=== PATIENT | female | born 2000 | race African-American/Black ===

== ENCOUNTER 2025-05-30 19:20 | Emergency (ER) | payer OTHER ==
[~2025-05-30] VITALS: Ht 154.9 cm; Wt 63.5 kg
[2025-05-30 19:25] VITALS: BP 134/69; TEMP 98; O2SAT 100
[2025-05-30 20:31] LABS: HCG, SERUM QUALITATIVE POSITIVE (NEGATIVE)
== END 2025-05-30 21:00 | disposition home or self-care (01) ==
LOC: M ED 19:20
DX: Z32.01 Encounter for pregnancy test, result positive (principal)

== ENCOUNTER 2025-06-13 05:45 | Emergency (ER) | payer OTHER ==
[~2025-06-13] VITALS: Ht 154.9 cm; Wt 64.9 kg
[2025-06-13] MEDS ORDERED: MULTTAB20 PO (05:52)
[2025-06-13 06:56] LABS: BASO # 0.0 10^3/uL (0.0-0.2); BASO % 0.4 % (0.0-1.0); EOS # 0.2 10^3/uL (0.0-0.5); EOS % 2.0 % (0.0-3.0); LYMPH # 2.6 10^3/uL (1.5-5.0); LYMPH % 28.4 % (24.0-44.0); MONO # 0.8 10^3/uL (0.0-0.8); MONO % 8.9 % (2.0-8.0); NEUTROPHILS # 5.4 10^3/uL (1.5-8.5); NEUTROPHILS % 59.9 % (36.0-66.0); PLATELET COUNT, AUTOMATED 260 10^3/uL (150-450)
[2025-06-13 07:16] LABS: KETONE, URINE AUTO RFX NEGATIVE (NEGATIVE); LEUKOCYTE ESTERASE UR AUTO RFX NEGATIVE (NEGATIVE); NITRITE, URINE AUTO RFX NEGATIVE (NEGATIVE); RBC, URINE AUTO RFX 0 /HPF (0-3); SQUAM EPITHELIAL CELL UR AURFX 5 /HPF (0-6); WBC, URINE AUTO RFX 0 /HPF (0-3)
[2025-06-13 07:19] LABS: ALT/SGPT 15 U/L (7.0-40); AST/SGOT 21 U/L (<34); CALCIUM LEVEL 9.2 MG/DL (8.5-10.1); CARBON DIOXIDE LEVEL 26 MMOL/L (20-31); CHLORIDE LEVEL 103 MMOL/L (98-107); CREATININE FOR GFR 0.75 MG/DL (0.55-1.30); GLOMERULAR FILTRATION RATE > 90.0 (>60); POTASSIUM SERUM 4.7 MMOL/L (3.5-5.1); SODIUM LEVEL 138 MMOL/L (136-145)
[2025-06-13 07:52] LABS: HCG, SERUM QUANTITATIVE 28395.8 MIU/ML (<4.2)
[2025-06-13 09:20] VITALS: BP 112/69; TEMP 97.9; O2SAT 100
== END 2025-06-13 09:48 | disposition home or self-care (01) ==
LOC: M ED 05:45
DX: O20.8 Other hemorrhage in early pregnancy (principal); Z3A.01 Less than 8 weeks gestation of pregnancy

== ENCOUNTER → 2025-06-15 | Outpatient (CLI) | payer OTHER ==
[~2025-06-15] MED LIST: MULTTAB20 PO
== END ==
LOC: M LAB 09:51
DX: N93.9 Abnormal uterine and vaginal bleeding, unspecified (principal)

== ENCOUNTER → 2025-07-19 | Outpatient (CLI) | payer OTHER ==
[~2025-07-19] MED LIST changes: +APAP325T4 PO
[2025-07-19 16:55] LABS: PLATELET COUNT, AUTOMATED 238 10^3/uL (150-450)
[2025-07-19 17:50] LABS: HIV 1&2 SCREEN NEGATIVE (NEGATIVE)
[2025-07-19 17:56] LABS: Trichomonas vaginalis (AMP) NOT DETECTED (NEGATIVE)
[2025-07-19 17:57] LABS: HEPATITIS C VIRUS ABY INDEX < 0.02 INDEX (<0.8)
[2025-07-19 19:47] LABS: GC DNA AMPLIFICATION NEGATIVE (NEGATIVE)
== END ==
LOC: M PLALAB 15:01
PROVIDERS: ATTEND Obstetrics & Gynecology
DX: Z34.91 Encounter for supervision of normal pregnancy, unspecified, first trimester (principal); Z3A.00 Weeks of gestation of pregnancy not specified

== ENCOUNTER → 2025-07-19 | Outpatient (REF) | payer OTHER ==
[~2025-07-19] MED LIST changes: -APAP325T4 PO
== END ==
LOC: M PLALAB 14:36
PROVIDERS: ATTEND Obstetrics & Gynecology
DX: Z34.91 Encounter for supervision of normal pregnancy, unspecified, first trimester (principal)

== ENCOUNTER 2025-07-21 18:20 | Emergency (ER) | payer OTHER ==
[~2025-07-21] VITALS: Ht 154.9 cm; Wt 66.2 kg
[2025-07-21] MEDS: NS (Normal Saline) 0.9% 1,000 ML IV ONE (21:01)
[2025-07-21] MEDS: ONDANSETRON 4MG/2ML VIAL IV ONE (21:02)
[2025-07-21] MEDS: ACETAMINOPHEN *IV* 1,000 MG in IV 1 EA IV ONE (21:02)
[2025-07-21 21:17] LABS: KETONE, URINE AUTO RFX NEGATIVE (NEGATIVE); LEUKOCYTE ESTERASE UR AUTO RFX NEGATIVE (NEGATIVE); NITRITE, URINE AUTO RFX NEGATIVE (NEGATIVE); RBC, URINE AUTO RFX 0 /HPF (0-3); SQUAM EPITHELIAL CELL UR AURFX 1 /HPF (0-6); WBC, URINE AUTO RFX 0 /HPF (0-3)
[2025-07-21 22:09] VITALS: BP 110/76; TEMP 98.7; O2SAT 97
[2025-07-22] MEDS ORDERED: APAP325T4 PO (13:03)
== END 2025-07-21 22:23 | disposition home or self-care (01) ==
LOC: M ED 18:20
DX: J06.9 Acute upper respiratory infection, unspecified (principal); B34.1 Enterovirus infection, unspecified
CPT/HCPCS: 81001; 87486; 87581; 87633; 87798; 96365; 96375; 99284; J0134; J2405

== ENCOUNTER 2025-07-22 12:52 | Emergency (ER) | payer OTHER ==
[~2025-07-22] VITALS: Ht 154.9 cm; Wt 65.9 kg
[2025-07-22] MEDS ORDERED: APAP325T4 PO (13:03)
[2025-07-22 15:08] LABS: BASO # 0.0 10^3/uL (0.0-0.2); BASO % 0.5 % (0.0-1.0); EOS # 0.1 10^3/uL (0.0-0.5); EOS % 1.8 % (0.0-3.0); LYMPH # 1.5 10^3/uL (1.5-5.0); LYMPH % 23.4 % (24.0-44.0); MONO # 0.3 10^3/uL (0.0-0.8); MONO % 4.0 % (2.0-8.0); NEUTROPHILS # 4.3 10^3/uL (1.5-8.5); NEUTROPHILS % 69.8 % (36.0-66.0); PLATELET COUNT, AUTOMATED 213 10^3/uL (150-450)
[2025-07-22 15:30] LABS: CALCIUM LEVEL 8.9 MG/DL (8.5-10.1); CARBON DIOXIDE LEVEL 22 MMOL/L (20-31); CHLORIDE LEVEL 105 MMOL/L (98-107); CREATININE FOR GFR 0.55 MG/DL (0.55-1.30); GLOMERULAR FILTRATION RATE > 90.0 (>60); POTASSIUM SERUM 3.9 MMOL/L (3.5-5.1); SODIUM LEVEL 136 MMOL/L (136-145)
[2025-07-22 16:53] VITALS: BP 126/76; TEMP 97.6; O2SAT 100
== END 2025-07-22 16:57 | disposition home or self-care (01) ==
LOC: M ED 12:52
DX: O20.8 Other hemorrhage in early pregnancy (principal); Z3A.12 12 weeks gestation of pregnancy

== ENCOUNTER 2025-07-25 04:07 | Emergency (ER) | payer OTHER ==
[~2025-07-25] VITALS: Ht 154.9 cm; Wt 66.4 kg
[~2025-07-25 04:07] MED LIST changes: +APAP325T4 PO
[2025-07-25 05:17] LABS: PLATELET COUNT, AUTOMATED 224 10^3/uL (150-450)
[2025-07-25 05:54] LABS: CALCIUM LEVEL 9.2 MG/DL (8.5-10.1); CARBON DIOXIDE LEVEL 20 MMOL/L (20-31); CHLORIDE LEVEL 104 MMOL/L (98-107); CREATININE FOR GFR 0.57 MG/DL (0.55-1.30); GLOMERULAR FILTRATION RATE > 90.0 (>60); POTASSIUM SERUM 4.3 MMOL/L (3.5-5.1); SODIUM LEVEL 136 MMOL/L (136-145)
[2025-07-25 08:54] VITALS: BP 115/67; TEMP 97.4; O2SAT 100
[2025-07-25 09:04] LABS: KETONE, URINE AUTO RFX NEGATIVE (NEGATIVE); LEUKOCYTE ESTERASE UR AUTO RFX NEGATIVE (NEGATIVE); MUCUS, URINE RFX SMALL (NEGATIVE); NITRITE, URINE AUTO RFX NEGATIVE (NEGATIVE); RBC, URINE AUTO RFX 0 /HPF (0-3); SQUAM EPITHELIAL CELL UR AURFX 2 /HPF (0-6); WBC, URINE AUTO RFX 0 /HPF (0-3)
== END 2025-07-25 09:50 | disposition home or self-care (01) ==
LOC: M ED 04:07
DX: O20.0 Threatened abortion (principal); O46.8X1 Other antepartum hemorrhage, first trimester; Z3A.12 12 weeks gestation of pregnancy

== ENCOUNTER 2025-08-10 13:17 | Emergency (ER) | payer OTHER ==
[~2025-08-10] VITALS: Ht 154.9 cm; Wt 67.1 kg
[2025-08-10] MEDS ORDERED: UNIS25TA3 (13:31)
[2025-08-10] MEDS ORDERED: PYRI25TA2 (13:31)
[2025-08-10 14:17] LABS: BASO # 0.0 10^3/uL (0.0-0.2); BASO % 0.4 % (0.0-1.0); EOS # 0.1 10^3/uL (0.0-0.5); EOS % 1.2 % (0.0-3.0); LYMPH # 1.6 10^3/uL (1.5-5.0); LYMPH % 19.9 % (24.0-44.0); MONO # 0.6 10^3/uL (0.0-0.8); MONO % 7.3 % (2.0-8.0); NEUTROPHILS # 5.5 10^3/uL (1.5-8.5); NEUTROPHILS % 70.6 % (36.0-66.0); PLATELET COUNT, AUTOMATED 226 10^3/uL (150-450)
[2025-08-10 14:49] LABS: CALCIUM LEVEL 9.5 MG/DL (8.5-10.1); CARBON DIOXIDE LEVEL 21 MMOL/L (20-31); CHLORIDE LEVEL 107 MMOL/L (98-107); CREATININE FOR GFR 0.53 MG/DL (0.55-1.30); GLOMERULAR FILTRATION RATE > 90.0 (>60); POTASSIUM SERUM 3.7 MMOL/L (3.5-5.1); SODIUM LEVEL 138 MMOL/L (136-145)
[2025-08-10] MEDS: ACETAMINOPHEN 325 MG TAB PO ONE (17:39)
[2025-08-10] MEDS: NS (Normal Saline) 0.9% 1,000 ML IV ONE (18:51)
[2025-08-10] MEDS: MAG SULF 1GM/100ML (MAG RUN) 1 GM in IV 1 EA IV ONE (19:24)
[2025-08-10 20:29] VITALS: TEMP 98.1
[2025-08-10 21:19] VITALS: BP 128/76; O2SAT 98
== END 2025-08-10 21:21 | disposition home or self-care (01) ==
LOC: M ED 13:17
DX: O9A.212 Injury, poisoning and certain other consequences of external causes complicating pregnancy, second trimester (principal); M54.50 Low back pain, unspecified; M25.511 Pain in right shoulder; W10.9XXA Fall (on) (from) unspecified stairs and steps, initial encounter; Y92.9 Unspecified place or not applicable; Y93.9 Activity, unspecified; Y99.9 Unspecified external cause status; Z3A.14 14 weeks gestation of pregnancy
CPT/HCPCS: 76815; 80048; 84702; 85025; 86850; 86900; 86901; 96361; 96365; 96375; 99284; J2765; J3475